=== PATIENT | female | born 1990 | race Caucasian/White ===

== ENCOUNTER → 2017-01-01 | Outpatient (CLI) | payer OTHER ==
--- NOTE | 2017-01-01 13:13 | KCIC ---
PROCEDURE Obstetric ultrasound, 1st trimester. HISTORY Supervision of normal . TECHNIQUE Real-time ultrasound imaging of the pelvis using transabdominal window is performed. COMPARISON None. FINDINGS Uterus measures 9.5 x 7.1 x 8.1 cm. No cul-de-sac free fluid is identified. The maternal ovaries are not identified transabdominally. There is intrauterine gestational sac. No perigestational hemorrhage is seen. Yolk sac is not identified. [place]-rump length 4.2 cm, 11 weeks and 0 days. Estimated heart rate 175 beats per minute. EDC ultrasound is July 23, 2017. IMPRESSION Single live intrauterine , estimated sonographic gestational age 11 weeks and 0 days. Electronically signed by: Lalito Campos MD (January 01, 2017 13:11:58)
== END | disposition home or self-care (01) ==
LOC: KCIC US 10:27
PROVIDERS: ATTEND Family Medicine
DX: Z34.91 Encounter for supervision of normal pregnancy, unspecified, first trimester (principal)
CPT/HCPCS: 76801; 76817

== ENCOUNTER 2017-02-07 13:29 | Emergency (ER) | payer OTHER ==
[~2017-02-07] VITALS: Ht 170.2 cm; Wt 122.5 kg
[2017-02-07] MEDS ORDERED: ONDANSETRON PF 4 MG/2 ML VIAL. IV ONE (14:15)
[2017-02-07] MEDS ORDERED: IV NORMAL SALINE 1000ML BAG 1,000 ML IV ONE (14:15)
[2017-02-07 14:21] LABS: BILIRUBIN,URINE SMALL (NEG); GLUCOSE,URINE NEGATIVE (NEG); NITRITE,URINE NEGATIVE (NEG); PROTEIN,URINE >=300 mg/dL (NEG-TRACE)
--- NOTE | 2017-02-07 14:26 | PHYS DOC ---
Past Medical History Past Medical History: No Pertinent History Past Surgical History: Tonsillectomy Additional Past Surgical Histo: WISDOM TEETH Alcohol Use: Occasionally Additional Information: PT REPORTS PREVIOUSLY DRINKING OCCASIONALLY PRIOR TO . Drug Use: None Adult General Chief Complaint Chief Complaint: DIZZY/LIGHT HEADED HPI HPI Patient is a 26 year old female brought to the ED by a family member with a complaint of nausea, vomiting, and lightheadedness for one week. The patient is 16 weeks segment. . Her BOAT ENGINE MECHANIC is Dr. Priscilla Craft. She has been having some nausea and vomiting throughout her and for the last week it has been worse. She did vomit some bright red blood once or twice. She has Zofran and Phenergan at home, neither are helping. She is starting to feel somewhat lightheaded and dizzy. No chronic medical problems. Review of Systems Review of Systems Constitutional: Denies fever or chills [] HENT: Denies nasal congestion or sore throat [] Respiratory: She has had a dry cough. Cardiovascular: No chest pain GI: Denies abdominal pain, nausea, vomiting, bloody stools or diarrhea [] : As in history of present illness, denies vaginal bleeding Musculoskeletal: Denies back pain or joint pain [] Integument: Denies rash or skin lesions [] Neurologic: Denies headache, focal weakness or sensory changes [] Current Medications Current Medications Current Medications Medications (Trade) Dose Ordered Sig/Gill Start Time Stop Time Status Last Admin Dose Admin Ondansetron HCl (Zofran) 4 mg 1X ONCE 02/07/17 14:15 02/07/17 14:16 DC 02/07/17 14:39 4 MG Sodium Chloride 1,000 ml @ 1,000 mls/hr 1X ONCE 02/07/17 14:15 02/07/17 15:14 DC 02/07/17 14:38 1,000 MLS/HR Allergies Allergies Allergies Coded Allergies Type Severity Reaction Last Updated Verified No Known Drug Allergies 02/07/17 No Physical Exam Physical Exam Constitutional: Well developed, well nourished, no acute distress, non-toxic appearance. Her, mentating normally. Sitting HENT: Normocephalic, atraumatic, bilateral external ears normal, nose normal. [] Eyes: conjunctiva normal, no discharge. [] Neck: Normal range of motion, no stridor. [] Cardiovascular:Heart rate regular rhythm, no murmur [] Lungs & Thorax: Bilateral breath sounds clear to auscultation [] Abdomen: Bowel sounds normal, soft, no tenderness, no masses, no pulsatile masses. [] Skin: Warm, dry, no erythema, no rash. [] Extremities: No tenderness, no cyanosis, no clubbing, ROM intact, no edema. [] Neurologic: Alert and oriented X 3, normal motor function, normal sensory function, no focal deficits noted. [] Current Patient Data Vital Signs Vital Signs Date Time Temp Pulse Resp B/P (MAP) Pulse Ox O2 Delivery O2 Flow Rate FiO2 02/07/17 15:24 83 16 130/60 (83) 98 Room Air 02/07/17 13:35 98.1 98.1 Lab Values Laboratory Tests Test 02/07/17 13:35 02/07/17 14:35 Urine Color Russell Urine Clarity Turbid Urine pH 6.0 Urine Specific [place] 1.025 Urine Protein >=300 mg/dL (NEG-TRACE) Urine Glucose (UA) Negative mg/dL (NEG) Urine Ketones (Stick) 15 mg/dL (NEG) Urine Blood Negative (NEG) Urine Nitrite Negative (NEG) Urine Bilirubin Small (NEG) Urine Urobilinogen Dipstick 1.0 mg/dL (0.2 mg/dL) Urine Leukocyte Esterase Moderate (NEG) Urine RBC Occ /HPF (0-2) Urine WBC 5-10 /HPF (0-4) Urine Squamous Epithelial Cells Mod /LPF Urine Bacteria Many /HPF (0-FEW) Urine Mucus Mod /LPF POC Hemoglobin 12.6 g/dL (12-15) POC Hematocrit 37 % (36-40) POC Sodium 139 mmol/L (135-145) POC Potassium 3.9 mmol/L (3.5-5.0) POC Chloride 104 mmol/L (98-110) POC Total CO2 21 mmol/L (23-32) L Anion Gap 19 mmol/L (6-14) H POC Blood Urea Nitrogen 3 mg/dL (8-26) L POC Creatinine 0.5 mg/dL (0.5-1.4) Glucose Level 89 mg/dL (70-99) POC Ionized Calcium ([place]) 1.18 mmol/L (1.13-1.32) Laboratory Tests 02/07/17 14:35 EKG EKG [] Radiology/Procedures Radiology/Procedures [] Course & Med Decision Making Course & Med Decision Making Pertinent Labs and Imaging studies reviewed. (See chart for details) 26-year-old female with her first who has had some nausea, vomiting, and lightheadedness. She is 16 weeks . I discussed with the patient that we can offer her some IV fluids today and she is agreeable to that. We will check some labs and a urinalysis. Labs unremarkable, urinalysis contaminated. She did have protein in her urine and I ask her to follow up with her OB doctor for further evaluation if necessary. She was given a liter of normal saline. She had no vomiting in the ED. She is stable for discharge and has an appointment this coming Friday with her OB doctor. [] Dragon Disclaimer Dragon Disclaimer This electronic medical record was generated, in whole or in part, using a voice recognition dictation system. Departure Departure Impression: Primary Impression: Lightheadedness Additional Impression: Second trimester Disposition: HOME, SELF-CARE Condition: IMPROVED Referrals: MYLENE CRAFT MD (PCP) Patient Instructions: Diet - Hyperemesis Gravidarum, Hyperemesis Gravidarum, - First Trimester, [id number] Additional Instructions: As we discussed, small amounts of fluids all day long. You may use nausea medicine as prescribed by your OB doctor. Today in the ER, urine test showed protein in your urine. Please discuss this with Dr. Craft when you see her next week. Problem Qualifiers SANDRA SHARP MD Feb 07, 2017 14:26
[2017-02-07 14:44] LABS: BACTERIA,URINE MANY /HPF (0-FEW); RBC,URINE OCC /HPF (0-2); SQUAMOUS EPITHELIAL CELL,UR MOD /LPF
[2017-02-07 14:45] LABS: POTASSIUM ISTAT 3.9 mmol/L (3.5-5.0)
[2017-02-07 15:24] VITALS: BP 130/60
== END 2017-02-07 15:24 | disposition home or self-care (01) ==
LOC: ER 13:29
DX: O26.892 Other specified pregnancy related conditions, second trimester (principal); R42 Dizziness and giddiness; O21.0 Mild hyperemesis gravidarum; Z3A.16 16 weeks gestation of pregnancy
CPT/HCPCS: 80047; 81001; 81025; 87086; 96361; 96374; 99284; J2405; J7030

== ENCOUNTER → 2017-02-28 | Outpatient (CLI) | payer OTHER ==
[2017-02-07 15:24] VITALS: BP 130/60
--- NOTE | 2017-02-28 12:40 | KCIC ---
Examination: Obstetric ultrasound greater than 14 weeks HISTORY: History of supervision of normal COMPARISON: 01/01/2017 FINDINGS: Single living intrauterine identified with heart rate of 143 bpm. movement is seen. Cardiac activity seen. 4 chamber heart seen. 3 vessel cord, cord insertion, fluid in the bladder, stomach, kidneys, spine: seen brain: Seen position is transverse Amniotic fluid is normal. Placenta grade is grade 0. Placenta location anterior wall LMP 10/16/2016 Clinical age 19 weeks and 2 days with estimated date of delivery 07/23/2017. Ultrasound age is 19 weeks and 6 days with date of delivery by ultrasound 07/19/2017. Cephalic index 80.8 Head circumference to abdominal circumference ratio 1.2 Femur length to biparietal diameter 71.3. Femur length to head circumference is 19.5. Femur length to abdominal circumference 23.4. Biparietal diameter 4.6 cm corresponding to 20 weeks and 0 days +/- 12 days. Head circumference 16.98 cm corresponding to 19 weeks and 4 days +/- 10 days. Abdominal circumference 14.13 cm corresponding to 19 weeks and 3 days +/- 14 days. Femur length 3.31 cm corresponding 20 weeks and 2 days +/- 13 days. Estimated weight 318 g +/- 47 g. Gestational age is 19 weeks and 6 days. IMPRESSION: 1. Single living intrauterine with heart rate of 143 bpm. Per this ultrasound the ultrasound age is 19 weeks and 6 days with estimated date of delivery by ultrasound 07/19/2017. Electronically signed by: Erick Heller MD (02/28/2017 12:37 PM) [id number]
== END | disposition home or self-care (01) ==
LOC: KCIC US 10:34
PROVIDERS: ATTEND Family Medicine
DX: Z34.92 Encounter for supervision of normal pregnancy, unspecified, second trimester (principal); Z3A.19 19 weeks gestation of pregnancy
CPT/HCPCS: 76805

== ENCOUNTER 2017-04-03 12:06 | Observation (INO) | payer OTHER | END 2017-04-03 13:20 | disposition home or self-care (01) | LOC: 3 SO LND 12:06 | PROVIDERS: ADMIT Family Medicine; ATTEND Family Medicine | DX: O36.8120 Decreased fetal movements, second trimester, not applicable or unspecified (principal); Z3A.24 24 weeks gestation of pregnancy | CPT/HCPCS: G0378; G0379 ==

== ENCOUNTER 2017-05-03 06:49 | Emergency (ER) | payer OTHER ==
[~2017-05-03] VITALS: Ht 170.2 cm; Wt 131.1 kg
[2017-05-03 07:09] VITALS: BP 149/86
[2017-05-03] MEDS ORDERED: HYDR-971 PO (07:26)
[2017-05-03] MEDS ORDERED: AMOX500C PO (07:26)
--- NOTE | 2017-05-03 07:27 | PHYS DOC ---
Past Medical History Past Medical History: No Pertinent History Past Surgical History: Tonsillectomy Additional Past Surgical Histo: WISDOM TEETH Alcohol Use: None Drug Use: None Adult General Chief Complaint Chief Complaint: DENTAL PROBLEM HPI HPI Patient is a 26 year old female who presents with increasing dental pain to the right back upper and lower jaw. She states that she has had a broken right upper molar for a long time, but broke the bottom molar approximately 6 months ago. She states that they have been painless up until the past few days when pain started gradually increasing. She has been taking Tylenol with no relief. She just recently obtained dental insurance, but was unable to sleep last night and did not think that she would be able to get into a dentist over the weekend. Review of Systems Review of Systems Constitutional: Denies fever or chills [] Eyes: Denies change in visual acuity, redness, or eye pain [] HENT: See history of present illness Respiratory: Denies cough or shortness of breath [] Cardiovascular: No additional information not addressed in HPI [] Musculoskeletal: Denies back pain or joint pain [] Integument: Denies rash or skin lesions [] Neurologic: Denies headache, focal weakness or sensory changes [] Endocrine: Denies polyuria or polydipsia [] Allergies Allergies Allergies Coded Allergies Type Severity Reaction Last Updated Verified No Known Drug Allergies 02/07/17 No Physical Exam Physical Exam Constitutional: Well developed, well nourished, no acute distress, non-toxic appearance. [] HENT: Normocephalic, atraumatic, bilateral external ears normal, oropharynx moist, no oral exudates, nose normal, tooth #1 is fractured with no erythema, tooth #32 is fractured with erythema around the gum and swelling noted. [] Eyes: PERRLA, EOMI, conjunctiva normal, no discharge. [] Neck: Normal range of motion, no tenderness, supple, no stridor. [] Cardiovascular:Heart rate regular rhythm, no murmur [] Lungs & Thorax: Bilateral breath sounds clear to auscultation [] Skin: Warm, dry, no erythema, no rash. [] Neurologic: Alert and oriented X 3, normal motor function, normal sensory function, no focal deficits noted. [] Psychologic: Affect normal, judgement normal, mood normal. [] Current Patient Data Vital Signs Vital Signs Date Time Temp Pulse Resp B/P (MAP) Pulse Ox O2 Delivery O2 Flow Rate FiO2 05/03/17 07:09 98.4 98 16 98 Room Air 98.4 EKG EKG [] Radiology/Procedures Radiology/Procedures [] Course & Med Decision Making Course & Med Decision Making Pertinent Labs and Imaging studies reviewed. (See chart for details) []1. Dental infection 2. Fractured teeth Dragon Disclaimer Dragon Disclaimer This electronic medical record was generated, in whole or in part, using a voice recognition dictation system. Departure Departure Impression: Primary Impression: Fractured tooth Additional Impression: Dental infection Disposition: HOME, SELF-CARE Condition: STABLE Referrals: MYLENE CRAFT MD (PCP) Additional Instructions: Call a dental clinic today for an appointment. The patient has been placed on amoxicillin and a small amount of Kathryn for pain. She is to not drive or operate heavy machinery while she is taking this medication. She is to keep her regularly scheduled obstetric appointments and follow-up with her PCP as needed. Scripts Hydrocodone/Apap 5-325 (NORCO 5-325 TABLET) 1 Each Tablet 1 TAB PO PRN Q6HRS Y for PAIN, #5 TAB 0 Refills Prov: KHADRA BETANCOURT APRN 05/03/17 Amoxicillin (AMOXICILLIN) 500 Mg Capsule 2 CAP PO BID, #40 CAP Prov: KHADRA BETANCOURT APRN 05/03/17 Problem Qualifiers KHADRA BETANCOURT APRN May 03, 2017 07:27
== END 2017-05-03 07:40 | disposition home or self-care (01) ==
LOC: ER 06:49
DX: S02.5XXA Fracture of tooth (traumatic), initial encounter for closed fracture (principal); K04.7 Periapical abscess without sinus; X58.XXXA Exposure to other specified factors, initial encounter; Y93.89 Activity, other specified; Y99.8 Other external cause status; Y92.89 Other specified places as the place of occurrence of the external cause
CPT/HCPCS: 99283

== ENCOUNTER 2017-07-04 09:42 | Observation (INO) | payer OTHER ==
[~2017-07-04 09:42] MED LIST: AMOX500C PO; HYDR-971 PO
== END 2017-07-04 10:40 | disposition home or self-care (01) ==
LOC: 3 SO LND 09:42
PROVIDERS: ADMIT Family Medicine; ATTEND Family Medicine
DX: O24.419 Gestational diabetes mellitus in pregnancy, unspecified control (principal); Z3A.37 37 weeks gestation of pregnancy
CPT/HCPCS: G0378; G0379

== ENCOUNTER 2017-07-11 14:13 | Observation (INO) | payer OTHER ==
[~2017-07-11] VITALS: Ht 170.2 cm; Wt 134.7 kg
[2017-07-11] MEDS ORDERED: IV RINGERS,LACTATED 1000ML 1,000 ML IV SCH (14:23)
== END 2017-07-11 14:56 | disposition home or self-care (01) ==
LOC: 3 SO LND 14:13
PROVIDERS: ADMIT Family Medicine; ATTEND Family Medicine
DX: O24.419 Gestational diabetes mellitus in pregnancy, unspecified control (principal); Z3A.38 38 weeks gestation of pregnancy
CPT/HCPCS: G0378; G0379; 59025

== ENCOUNTER 2017-07-13 19:28 | Inpatient (IN) | payer OTHER ==
[~2017-07-13] VITALS: Ht 170.2 cm; Wt 133.4 kg
[2017-07-13] MEDS ORDERED: BUTORPHANOL 2 MG/ML VIAL. IV PRN ×2 (19:30)
[2017-07-13] MEDS ORDERED: TERBUTALINE 1 MG/ML VIAL. SQ PRN (19:30)
[2017-07-13] MEDS ORDERED: fentaNYL PF VIAL 100 MCG/2 ML VIAL IV PRN (19:30)
[2017-07-13] MEDS ORDERED: 0.9 % SODIUM CHLORIDE 10 ML DISP.SYRIN. IV PRN (19:30)
[2017-07-13] MEDS ORDERED: IBUPROFEN 600 MG TABLET. PO PRN (19:30)
[2017-07-13] MEDS ORDERED: OXYTOCIN 30 UNIT/500 ML PREMIX 500 ML IV PRN (19:30)
[2017-07-13] MEDS ORDERED: LIDOCAINE 1% PF 30 ML VIAL. INJ PRN (19:30)
[2017-07-13] MEDS ORDERED: AMPICILLIN SODIUM 1 GM in IV NORMAL SALINE 50ML 50 ML IV SCH (19:45)
[2017-07-13] MEDS ORDERED: AMPICILLIN SODIUM 2 GM in IV NORMAL SALINE 100ML 100 ML IV ONE (20:00)
[2017-07-13] MEDS ORDERED: DINOPROSTONE 10 MG SUPP.VAG VG ONE (20:00)
[2017-07-13 20:10] VITALS: BP 136/75
[2017-07-13] MEDS: IV RINGERS,LACTATED 1000ML 1,000 ML IV SCH (20:22)
[2017-07-13 20:23] LABS: BILIRUBIN,URINE NEGATIVE (NEG); GLUCOSE,URINE NEGATIVE (NEG); NITRITE,URINE NEGATIVE (NEG); PH,URINE 6.5; PROTEIN,URINE NEGATIVE (NEG-TRACE)
[2017-07-13 20:33] LABS: BACTERIA,URINE MODERATE /HPF (0-FEW); RBC,URINE 0 /HPF (0-2); SQUAMOUS EPITHELIAL CELL,UR MANY /LPF; WBC,URINE 20-40 /HPF (0-4); YEAST,URINE PRESENT /HPF
[2017-07-13 20:47] LABS: HEMATOCRIT 36.9 % (36.0-47.0); RED BLOOD COUNT 4.85 x10^6/uL (3.50-5.40); RED CELL DISTRIBUTION WIDTH 16.8 % (11.5-14.5); WHITE BLOOD COUNT 14.6 x10^3/uL (4.0-11.0)
[2017-07-14] MEDS: AMPICILLIN SODIUM IV Push 1 GM VIAL. IVP SCH ×6 (01:11→20:27)
[2017-07-14] MEDS: ONDANSETRON PF 4 MG/2 ML VIAL. IV PRN ×3 (03:31→17:32)
[2017-07-14] MEDS: IV RINGERS,LACTATED 1000ML 1,000 ML IV SCH ×3 (04:41→17:40)
[2017-07-14] MEDS ORDERED: OXYTOCIN 30 UNIT/500 ML PREMIX 500 ML IV PRN ×2 (08:00→22:15)
--- NOTE | 2017-07-14 09:00 | PDOC1 ---
OB - History Hx of Present Care: Good Care Ultrasounds: Normal mid trimester US Obstetrical Complications: Gestational Diabetes Medical Complications: Other (Leukocytosis) Past Family/Social History * Past Medical, Surgical, Family and Obstetric Histories reviewed from chart. Blood Type: B- Rubella: Immune RPR/VDRL: Negative GBS Status: Positive HBsAG: Negative OB - Chief Complaint & HPI Date of Admission: Date of Admission: Jul 13, 2017 at 19:28 Chief Complaint/History : 1 Para: 0 EDC: Jul 19, 2017 Reason for admission: induction of labor Indication for induction: medical complication (Gestational diabetes) Admission Nurse Assessment Rev: No Problems: OB - Admission Exam Physical Exam Vitals: VS - Last 72 Hours, by Label Date Time Temp Pulse Resp B/P (MAP) Pulse Ox O2 Delivery O2 Flow Rate FiO2 07/13/17 20:10 98.0 110 20 136/75 (95) Room Air 98.0 HEENT: Normal, Nasal Mucosa Normal, Oropharynx Normal, Moist Membranes, Fontanelles Normal Heart: Regular Rate Lungs: Clear, Equal Abdomen: Gravid Extremities: Normal Pulses, No tenderness or swelling Reflexes: Normal Cervical Dilatation: 1cm Effacement: 25% Station: -2 Membranes: Intact Heart Rate: Normal Accelerations: Accelerations Present Decelerations: Variable decelerations Short Term Variability: Present Media Law Faculty Member Variability: Moderate Contractions on Admission: None A/P Pt is a 27yo at 39.2wga admitted for IOL 2/2 GDM 1)IOL 2)GDM- started on Metformin within the last couple of weeks 3)GBS+ 4)B- Problems: MYLENE CRAFT MD Jul 14, 2017 09:00
[2017-07-14] MEDS ORDERED: ROPIVacaine 0.2% IN 0.9%NACL PF 40 MG/20 ML DISP.SYRIN. ONE ×2 (17:37→18:00)
[2017-07-14] MEDS ORDERED: L&D EPIDURAL CASSETTE 100 ML EP ONE (17:37)
[2017-07-14] MEDS ORDERED: ePHEDrine PF IN SALINE 50 MG/5 ML DISP.SYRIN IV ONE ×2 (17:57→18:00)
[2017-07-14] MEDS: L&D EPIDURAL CASSETTE 100 ML EP PRN (18:10)
[2017-07-14] MEDS ORDERED: NALOXONE 0.4 MG/ML VIAL. IV PRN (18:15)
[2017-07-14] MEDS ORDERED: fentaNYL PF VIAL 100 MCG/2 ML VIAL EPI ONE (18:15)
[2017-07-14] MEDS ORDERED: ePHEDrine PF IN SALINE 50 MG/5 ML DISP.SYRIN IV PRN (18:15)
[2017-07-14] MEDS ORDERED: ONDANSETRON PF 4 MG/2 ML VIAL. IV PRN (18:15)
[2017-07-14] MEDS ORDERED: ROPIVacaine 0.2% PF 10 ML VIAL. EPI ONE (18:15)
--- NOTE | 2017-07-14 22:12 | PDOC ---
VAGINAL DELIVERY DATE DATE: 07/14/17 TIME 0940 : 1 Para: 1 EDC: Jul 19, 2017 EGA: 39.2 VAGINAL DELIVERY: VTX VACCUM ASSISTED: No PLACENTA: Spontaneous 8/9 SEX: Male WEIGHT Weight 6 pounds 9oz or 2980g Nuchal Cord: No Amniotic Fluid: Clear PAIN: Epidural EPISIOTOMY: No EXTENSION: Yes (3rd degree perianal) REPAIRED WITH 3'0" vicryl EBL 400cc COMPLICATIONS None CONDITION Stable CUTTING TORCH OPERATOR Dr. Craft Signs of Intrauterine Infectio: None Shoulder Dystocia: No DIAGNOSIS Pt is a 27yo [id number] s/p induced vaginal delivery at 39.2wga 2/2 GDM 1)GBS+ received abx during labor 2)GDM- blood sugars controlled with Metformin 3)Rh negative 4) Problems: MYLENE CRAFT MD Jul 14, 2017 22:12
[2017-07-14] MEDS ORDERED: diphenhydrAMINE HCL 25 MG CAPSULE PO PRN (22:15)
[2017-07-14] MEDS ORDERED: MAGNESIUM HYDROXIDE 2,400 MG/30 ML ORAL.SUSP. PO PRN (22:15)
[2017-07-14] MEDS ORDERED: HYDROCORTISONE 1% TOPICAL OINTMENT 30GM TUBE. TP PRN (22:15)
[2017-07-14] MEDS ORDERED: ACETAMINOPHEN 325 MG TABLET. PO PRN (22:15)
[2017-07-14] MEDS ORDERED: MMR per PROTOCOL. MC PRN (22:15)
[2017-07-14] MEDS ORDERED: 0.9 % SODIUM CHLORIDE 10 ML DISP.SYRIN. IV PRN (22:15)
[2017-07-14] MEDS ORDERED: BENZOCAINE 20% TOPICAL AEROSOL SPRAY 57GM CAN. TP PRN (22:15)
[2017-07-14] MEDS ORDERED: SIMETHICONE 80 MG TAB.CHEW PO PRN (22:15)
[2017-07-14] MEDS ORDERED: PHENYLEPH/MINERAL OIL/PETROLAT RECTAL OINTMENT 28GM TUBE. RC PRN (22:15)
[2017-07-14] MEDS ORDERED: MAG HYDROX/ALUMINUM HYD/SIMETH 30 ML ORAL.SUSP PO PRN (22:15)
[2017-07-14] MEDS ORDERED: DOCUSATE SODIUM 100 MG CAPSULE. PO PRN (22:15)
[2017-07-14] MEDS ORDERED: ZOLPIDEM 5 MG TABLET. PO PRN (22:15)
[2017-07-15] MEDS: L&D EPIDURAL CASSETTE 100 ML EP PRN (01:07)
[2017-07-15] MEDS: IV RINGERS,LACTATED 1000ML 1,000 ML IV SCH (01:08)
[2017-07-15] MEDS: AMPICILLIN SODIUM IV Push 1 GM VIAL. IVP SCH ×2 (01:09)
[2017-07-15 02:43] VITALS: BP 102/51
[2017-07-15 04:30] VITALS: BP 106/67
[2017-07-15 04:48] LABS: BASO # 0.1 x10^3/uL (0.0-0.2); BASO % 0 % (0-3); EOS % 0 % (0-3); HEMATOCRIT 31.1 % (36.0-47.0); HEMOGLOBIN 10.3 g/dL (12.0-15.5); LYMPH # 2.8 x10^3/uL (1.0-4.8); LYMPH % 15 % (24-48); MEAN CORPUSCULAR HEMOGLOBIN 25 pg (25-35); MEAN CORPUSCULAR HGB CONC 33 g/dL (31-37); MEAN CORPUSCULAR VOLUME 77 fL (79-100); MONO % 9 % (0-9); NEUT % 76 % (31-73); PLATELET COUNT 317 x10^3/uL (140-400); RED BLOOD COUNT 4.07 x10^6/uL (3.50-5.40); RED CELL DISTRIBUTION WIDTH 16.9 % (11.5-14.5); WHITE BLOOD COUNT 18.9 x10^3/uL (4.0-11.0)
--- NOTE | 2017-07-15 08:11 | PDOC ---
OB Progress Note Date of Service 07/15/17 Time of Evaluation 0745 Date: 07/14/17 Time: 2139 Notes Pt says that she is doing well. Bleeding is a little heavier than a period; no blood clots. Not taking any pain medication; pain moderately controlled. going well. OB VITAL SIGNS: Temperature (97.7), Blood Pressure (106/67), Pulse (97) Lab Laboratory Tests Test 07/13/17 20:15 07/13/17 20:20 07/14/17 11:44 07/14/17 17:08 Urine Collection Type Unknown Urine Color Yellow Urine Clarity Clear Urine pH 6.5 Urine Specific [place] 1.020 Urine Protein Negative mg/dL (NEG-TRACE) Urine Glucose (UA) Negative mg/dL (NEG) Urine Ketones (Stick) Negative mg/dL (NEG) Urine Blood Negative (NEG) Urine Nitrite Negative (NEG) Urine Bilirubin Negative (NEG) Urine Urobilinogen Dipstick 1.0 mg/dL (0.2 mg/dL) Urine Leukocyte Esterase Large (NEG) Urine RBC 0 /HPF (0-2) Urine WBC 20-40 /HPF (0-4) Urine Squamous Epithelial Cells Many /LPF Urine Bacteria Moderate /HPF (0-FEW) Urine Mucus Mod /LPF Urine Yeast Present /HPF White Blood Count 14.6 x10^3/uL (4.0-11.0) Red Blood Count 4.85 x10^6/uL (3.50-5.40) Hemoglobin 12.0 g/dL (12.0-15.5) Hematocrit 36.9 % (36.0-47.0) Mean Corpuscular Volume 76 fL (79-100) Mean Corpuscular Hemoglobin 25 pg (25-35) Mean Corpuscular Hemoglobin Concent 33 g/dL (31-37) Red Cell Distribution Width 16.8 % (11.5-14.5) Platelet Count 383 x10^3/uL (140-400) RPR Titer Additional Testing Non reactive (Non Reactive) Glucose (Fingerstick) 85 mg/dL (70-99) 83 mg/dL (70-99) Test 07/15/17 04:35 White Blood Count 18.9 x10^3/uL (4.0-11.0) Red Blood Count 4.07 x10^6/uL (3.50-5.40) Hemoglobin 10.3 g/dL (12.0-15.5) Hematocrit 31.1 % (36.0-47.0) Mean Corpuscular Volume 77 fL (79-100) Mean Corpuscular Hemoglobin 25 pg (25-35) Mean Corpuscular Hemoglobin Concent 33 g/dL (31-37) Red Cell Distribution Width 16.9 % (11.5-14.5) Platelet Count 317 x10^3/uL (140-400) Neutrophils (%) (Auto) 76 % (31-73) Lymphocytes (%) (Auto) 15 % (24-48) Monocytes (%) (Auto) 9 % (0-9) Eosinophils (%) (Auto) 0 % (0-3) Basophils (%) (Auto) 0 % (0-3) Neutrophils # (Auto) 14.3 x10^3uL (1.8-7.7) Lymphocytes # (Auto) 2.8 x10^3/uL (1.0-4.8) Monocytes # (Auto) 1.7 x10^3/uL (0.0-1.1) Eosinophils # (Auto) 0.0 x10^3/uL (0.0-0.7) Basophils # (Auto) 0.1 x10^3/uL (0.0-0.2) Laboratory Tests Test 07/14/17 11:44 07/14/17 17:08 07/15/17 04:35 Glucose (Fingerstick) 85 mg/dL (70-99) 83 mg/dL (70-99) White Blood Count 18.9 x10^3/uL (4.0-11.0) Red Blood Count 4.07 x10^6/uL (3.50-5.40) Hemoglobin 10.3 g/dL (12.0-15.5) Hematocrit 31.1 % (36.0-47.0) Mean Corpuscular Volume 77 fL (79-100) Mean Corpuscular Hemoglobin 25 pg (25-35) Mean Corpuscular Hemoglobin Concent 33 g/dL (31-37) Red Cell Distribution Width 16.9 % (11.5-14.5) Platelet Count 317 x10^3/uL (140-400) Neutrophils (%) (Auto) 76 % (31-73) Lymphocytes (%) (Auto) 15 % (24-48) Monocytes (%) (Auto) 9 % (0-9) Eosinophils (%) (Auto) 0 % (0-3) Basophils (%) (Auto) 0 % (0-3) Neutrophils # (Auto) 14.3 x10^3uL (1.8-7.7) Lymphocytes # (Auto) 2.8 x10^3/uL (1.0-4.8) Monocytes # (Auto) 1.7 x10^3/uL (0.0-1.1) Eosinophils # (Auto) 0.0 x10^3/uL (0.0-0.7) Basophils # (Auto) 0.1 x10^3/uL (0.0-0.2) Medications Current Medications Sodium Chloride (Normal Saline Flush) 3 ml QSHIFT PRN IV AFTER MEDS AND BLOOD DRAWS; Start 07/13/17 at 19:30; Stop 07/14/17 at 22:19; Status DC Ringer's Solution 1,000 ml @ 125 mls/hr Q8H IV Last administered on 17:40; Start 07/13/17 at 19:30 Butorphanol Tartrate (Stadol) 1 mg PRN Q1HR PRN IV mild to moderate labor pain ; Start 07/13/17 at 19:30; Stop 07/15/17 at 07:22; Status DC Butorphanol Tartrate (Stadol) 2 mg PRN Q1HR PRN IV Severe labor pain; Start at 19:30; Stop 07/15/17 at 07:22; Status DC Fentanyl Citrate (Fentanyl 2ml Vial) 100 mcg PRN Q30MIN PRN IV Severe pain; Start 07/13/17 at 19:30 Ondansetron HCl (Zofran) 4 mg PRN Q4HRS PRN IV NAUSEA/VOMITING Last administered on 07/14/17 17:32; Start 07/13/17 at 19:30; Stop 07/14/17 at 22 :19; Status DC Terbutaline Sulfate (Brethine) 0.25 mg 1X PRN PRN SQ SEE COMMENTS; Start 07/13 at 19:30; Stop 07/14/17 at 19:29; Status DC Lidocaine HCl 30 ml 1X PRN PRN INJ SEE COMMENTS; Start 07/13/17 at 19:30; Stop 07/15/17 at 07:22; Status DC Ampicillin Sodium 2 gm/Sodium Chloride 100 ml @ 200 mls/hr 1X ONCE IV Last administered on 07/13/17 20:23; Start 07/13/17 at 20:00; Stop 07/13/17 at 20 :29; Status DC Ampicillin Sodium 1 gm/Sodium Chloride 50 ml @ 100 mls/hr Q4H IV ; Start 07/13 at 19:45; Status UNV Oxytocin/Sodium Chloride 500 ml @ 0 mls/hr CONT PRN IV SEE I/O RECORD Last administered on 07/14/17 12:44; Start 07/14/17 at 08:00; Stop 07/15/17 at 07 :22; Status DC Oxytocin/Sodium Chloride 500 ml @ 0 mls/hr CONT PRN PRN IV Post delivery bleeding; Start 07/13/17 at 19:30; Stop 07/15/17 at 07:22; Status DC Ibuprofen (Motrin) 600 mg PRN Q6HRS PRN PO PAIN; Start 07/13/17 at 19:30; Stop 07/14/17 at 22:18; Status DC Dinoprostone (Cervidil) 10 mg 1X ONCE VG Last administered on 07/13/17 20:23 ; Start 07/13/17 at 20:00; Stop 07/13/17 at 20:01; Status DC Ampicillin Sodium (Omnipen) 1 gm Q4HRS IVP Last administered on 07/14/17 20: 27; Start 07/14/17 at 00:00; Stop 07/15/17 at 07:22; Status DC Ropivacaine/ Fentanyl/NS 100 ml @ As Directed STK-MED ONCE EP ; Start at 17:37; Stop 07/15/17 at 07:22; Status DC Ropivacaine/ Sodium Chloride 40 mg STK-MED ONCE .ROUTE ; Start 07/14/17 at 17: 37; Stop 07/15/17 at 07:22; Status DC Ephedrine Sulfate 50 mg STK-MED ONCE IV ; Start 07/14/17 at 17:57; Stop at 17:58; Status DC Ephedrine Sulfate 10 mg PRN Q2MIN PRN IV IF SBP<90; Start 07/14/17 at 18:15 Naloxone HCl (Narcan) 0.04 mg PRN Q1MIN PRN IV SEE COMMENTS; Start 07/14/17 at 18:15 Fentanyl Citrate (Fentanyl 2ml Vial) 100 mcg 1X ONCE EPI ; Start 07/14/17 at 18:15; Stop 07/14/17 at 18:16; Status DC Ropivacaine/ Fentanyl/NS 100 ml @ 14 mls/hr CONT PRN EP PAIN Last administered on 07/14/17t 18:10; Start 07/14/17 at 18:15; Stop 07/15/17 at 07 :22; Status DC Ondansetron HCl (Zofran) 4 mg PRN Q6HRS PRN IV NAUSEA/VOMITING; Start at 18:15 Ropivacaine (Naropin 0.2%) 20 ml 1X ONCE EPI ; Start 07/14/17 at 18:15; Stop 07/15/17 at 07:22; Status DC Sodium Chloride (Normal Saline Flush) 10 ml QSHIFT PRN IV AFTER MEDS AND BLOOD DRAWS; Start 07/14/17 at 22:15 Oxytocin/Sodium Chloride 500 ml @ 62.5 mls/hr CONT PRN IV SEE I/O RECORD; Start 07/14/17 at 22:15; Stop 07/15/17 at 06:14; Status DC Acetaminophen (Tylenol) 650 mg PRN Q6HRS PRN PO MILD PAIN / TEMP; Start at 22:15 Ibuprofen (Motrin) 800 mg Q8HRS PO ; Start 07/15/17 at 06:00 Docusate Sodium (Colace) 100 mg PRN BID PRN PO CONSTIPATION; Start 07/14/17 at 22:15 Magnesium Hydroxide (Milk Of Magnesia) 2,400 mg PRN DAILY PRN PO CONSTIPATION; Start 07/14/17 at 22:15 Al Hydroxide/Mg Hydroxide (Mylanta Plus Xs) 30 ml PRN Q4HRS PRN PO HEARTBURN / GAS; Start 07/14/17 at 22:15 Simethicone (Gas-X) 80 mg PRN AFTMEALHC PRN PO GAS / BLOATING; Start 07/14/17 at 22:15 Diphenhydramine HCl (Benadryl) 25 mg PRN Q6HRS PRN PO ITCHING; Start 07/14/17 at 22:15 Benzocaine (Americaine) 1 spray PRN QID PRN TP TOPICAL PAIN; Start 07/14/17 at 22:15 Phenyleph/Shark Oil/Min Oil/Petrol (Preparation H) 1 lyndsey PRN QID PRN RC RECTAL PAIN; Start 07/14/17 at 22:15 Hydrocortisone (Cortaid) 1 lyndsey PRN QID PRN TP PERINEAL PAIN; Start 07/14/17 at 22:15 Ferrous Sulfate (Feosol) 325 mg BIDWMEALS PO ; Start 07/15/17 at 08:00 Zolpidem Tartrate (Ambien) 5 mg PRN QHS PRN PO INSOMNIA, MAY REPEAT X1; Start 07/14/17 at 22:15 Info (Do NOT chart on this placeholder) 1 ea 1X PRN PRN MC SEE COMMENTS; Start 07/14/17 at 22:15 Info (Do NOT chart on this placeholder) 1 ea 1X PRN PRN MC SEE COMMENTS; Start 07/14/17 at 22:15 Active Scripts Active [place] 5-325 Tablet (Acetaminophen/Hydrocodone Bitart) 1 Each Tablet 1 Tab PO PRN Q6HRS PRN Amoxicillin 500 Mg Capsule 2 Cap PO BID Exam GEN: NAD, AOx3 HEENT: MMM, EOMI, no scleral icterus/injection Cardiac: RRR, no M/R/G Lungs: CTAB Abd: soft, non distended Ext: no erythema/edema LE bilaterally Assessment Pt is a 27yo [id number] s/p induced vaginal delivery at 39.2wga 2/2 GDM 1)GBS+ received abx during labor 2)GDM- blood sugars controlled with Metformin prior to delivery 3)Rh negative 4) 5)Abnormal U/A- dirty specimen, will get clean catch or straight cath 6)Leukocytosis- chronic. Repeat CBC in 1 month MYLENE CRAFT MD Jul 15, 2017 08:11
[2017-07-15] MEDS: IBUPROFEN 800 MG TABLET. PO SCH ×3 (08:25→22:00)
[2017-07-15] MEDS: FERROUS SULFATE 325 MG TABLET. PO SCH ×2 (08:25→16:27)
[2017-07-15 10:05] VITALS: BP 90/55
[2017-07-15 12:30] VITALS: BP 96/63
[2017-07-15 16:45] VITALS: BP 103/64
[2017-07-15 23:01] VITALS: BP 87/39
[2017-07-16 06:00] VITALS: BP 96/64
[2017-07-16] MEDS: IBUPROFEN 800 MG TABLET. PO SCH ×3 (06:00→07:57)
[2017-07-16 10:30] VITALS: BP 106/54
[2017-07-16] MEDS ORDERED: IBUP800T19 PO (12:19)
--- NOTE | 2017-07-16 12:37 | PDOC3 ---
OB DISCHARGE SUMMARY DATE OF ADMISSION: 07/14/17 DATE OF DISCHARGE: 07/16/17 REASON FOR ADMISSION: Induction of labor PROCEDURES: Mgmt of OB Complications INTRAPARTUM PROCEDURES: Spontanous Vag Deliv, Vaginal Laceration PROCEDURES: Antibiotics DISCHARGE DIAGNOSIS: Term Delivered DISCHARGE INFORMATION: Activity (As tolerated), Diet (Regular), Medications ( Ibuprofen, Docusate), Instructions (Follow up with Dr. Craft in 4-6 weeks), Discharge to (home) HOSPITAL COURSE Pt is a 27yo [id number] s/p induced vaginal delivery at 39.2wga 2/2 GDM 1)GBS+ received abx during labor 2)GDM- blood sugars controlled with Metformin prior to delivery 3)Rh negative 4) 5)Abnormal U/A- dirty specimen, pt asymptomatic 6)Leukocytosis- chronic. Repeat CBC in 1 month MYLENE CRAFT MD Jul 16, 2017 12:36
[2017-07-16 13:30] VITALS: BP 117/70
[2017-07-16 14:01] VITALS: BP 117/70
== END 2017-07-16 14:45 | disposition home or self-care (01) | DRG 775 ==
LOC: 3 SO LND 19:28 → 3 NORTH 07-15 00:57
PROVIDERS: ADMIT Family Medicine; ATTEND Family Medicine
PROC: 10E0XZZ Delivery of Products of Conception, External Approach (ICD-10-PCS; principal; 2017-07-15)
PROC: 0DQR0ZZ Repair Anal Sphincter, Open Approach (ICD-10-PCS; 2017-07-15)
PROC: 3E0R3BZ Introduction of Anesthetic Agent into Spinal Canal, Percutaneous Approach (ICD-10-PCS; 2017-07-15)
PROC: 00HU33Z Insertion of Infusion Device into Spinal Canal, Percutaneous Approach (ICD-10-PCS; 2017-07-15)
DX: O24.425 Gestational diabetes mellitus in childbirth, controlled by oral hypoglycemic drugs (principal); O70.20 Third degree perineal laceration during delivery, unspecified; D72.829 Elevated white blood cell count, unspecified; O99.824 Streptococcus B carrier state complicating childbirth; O76 Abnormality in fetal heart rate and rhythm complicating labor and delivery; Z37.0 Single live birth; Z3A.39 39 weeks gestation of pregnancy
CPT/HCPCS: 36415; 81001; 82962; 85025; 85027; 86593; 86850; 86900; 86901; 87086; J0290; J2405; J2590; J2791; J2795; J7120

== ENCOUNTER 2017-09-05 15:53 | Emergency (ER) | payer OTHER ==
[2017-09-05 16:32] LABS: URINE HCG POC HCG NEGATIVE (Negative)
[2017-09-05] MEDS ORDERED: 0.9 % SODIUM CHLORIDE 10 ML DISP.SYRIN. IV (16:45)
[2017-09-05 16:46] LABS: ADD MAN DIFF? NO
[2017-09-05 16:47] LABS: BILIRUBIN,URINE NEGATIVE (NEG); CLARITY,URINE CLEAR; COLOR,URINE YELLOW; GLUCOSE,URINE NEGATIVE (NEG); NITRITE,URINE NEGATIVE (NEG); PROTEIN,URINE NEGATIVE (NEG-TRACE); UROBILINOGEN,URINE 0.2 mg/dL (0.2 mg/dL)
[2017-09-05 16:48] LABS: BASO # 0.1 x10^3/uL (0.0-0.2); BASO % 0 % (0-3); EOS # 0.1 x10^3/uL (0.0-0.7); EOS % 1 % (0-3); HEMATOCRIT 37.5 % (36.0-47.0); LYMPH # 1.9 x10^3/uL (1.0-4.8); LYMPH % 14 % (24-48); MEAN CORPUSCULAR HEMOGLOBIN 25 pg (25-35); MEAN CORPUSCULAR HGB CONC 32 g/dL (31-37); MEAN CORPUSCULAR VOLUME 77 fL (79-100); MONO # 0.5 x10^3/uL (0.0-1.1); MONO % 4 % (0-9); NEUT # 10.9 x10^3uL (1.8-7.7); NEUT % 81 % (31-73); PLATELET COUNT 376 x10^3/uL (140-400); RED BLOOD COUNT 4.88 x10^6/uL (3.50-5.40); RED CELL DISTRIBUTION WIDTH 16.1 % (11.5-14.5); WHITE BLOOD COUNT 13.5 x10^3/uL (4.0-11.0)
[2017-09-05] MEDS: IV NORMAL SALINE 1000ML BAG 1,000 ML IV (16:52)
[2017-09-05] MEDS: FAMOTIDINE 20 MG/2 ML VIAL IVP (16:54)
[2017-09-05] MEDS: ONDANSETRON PF 4 MG/2 ML VIAL. IV (16:58)
[2017-09-05] MEDS: MORPHINE SULFATE 4 MG/ML DISP.SYRIN. IV/SQ (16:59)
[2017-09-05 17:00] LABS: BACTERIA,URINE FEW /HPF (0-FEW); GRANULAR CASTS,URINE OCCASIONAL /HPF; HYALINE CASTS, URINE OCCASIONAL /HPF; RBC,URINE 0 /HPF (0-2); SQUAMOUS EPITHELIAL CELL,UR OCC /LPF
[2017-09-05] MEDS ORDERED: CONTRAST GIVEN MC (17:00)
[2017-09-05 17:05] LABS: ANION GAP 10 (6-14); BLOOD UREA NITROGEN 13 mg/dL (7-20); CALCIUM 8.8 mg/dL (8.5-10.1); CARBON DIOXIDE 27 mmol/L (21-32); CHLORIDE 106 mmol/L (98-107); CREATININE 0.8 mg/dL (0.6-1.0); GFR 87.4; GLUCOSE 112 mg/dL (70-99); POTASSIUM 4.3 mmol/L (3.5-5.1); SODIUM 143 mmol/L (136-145)
[2017-09-05 17:07] LABS: ALBUMIN 3.2 g/dL (3.4-5.0); ALK PHOS 125 U/L (46-116); ALT (SGPT) 18 U/L (14-59); AST (SGOT) 44 U/L (15-37); DIRECT BILIRUBIN 0.2 mg/dL (0.0-0.2); LIPASE 262 U/L (73-393); TOTAL BILIRUBIN 0.2 mg/dL (0.2-1.0); TOTAL PROTEIN 7.8 g/dL (6.4-8.2)
[2017-09-05] MEDS: IOHEXOL 300 MG/ML 100ML VIAL. IV (17:24)
== END 2017-09-05 18:50 | disposition home or self-care (01) ==
LOC: ER 15:53
DX: R10.13 Epigastric pain (principal); R11.2 Nausea with vomiting, unspecified
CPT/HCPCS: 36415; 74177; 80048; 80076; 81001; 81025; 83690; 85025; 87086; 96361; 96374; 96375; 99285-25; J2270; J2405; J7030; Q9967; S0028

== ENCOUNTER 2017-10-13 22:12 | Emergency (ER) | payer OTHER ==
[2017-10-13 22:54] LABS: ADD MAN DIFF? NO
[2017-10-13 22:56] LABS: BASO # 0.1 x10^3/uL (0.0-0.2); BASO % 1 % (0-3); EOS # 0.2 x10^3/uL (0.0-0.7); EOS % 2 % (0-3); HEMATOCRIT 38.5 % (36.0-47.0); HEMOGLOBIN 12.7 g/dL (12.0-15.5); LYMPH # 2.5 x10^3/uL (1.0-4.8); LYMPH % 21 % (24-48); MEAN CORPUSCULAR HEMOGLOBIN 25 pg (25-35); MEAN CORPUSCULAR HGB CONC 33 g/dL (31-37); MEAN CORPUSCULAR VOLUME 74 fL (79-100); MONO # 0.7 x10^3/uL (0.0-1.1); MONO % 6 % (0-9); NEUT # 8.5 x10^3uL (1.8-7.7); NEUT % 71 % (31-73); PLATELET COUNT 412 x10^3/uL (140-400); RED BLOOD COUNT 5.17 x10^6/uL (3.50-5.40); RED CELL DISTRIBUTION WIDTH 15.8 % (11.5-14.5); WHITE BLOOD COUNT 11.8 x10^3/uL (4.0-11.0)
[2017-10-13 23:07] LABS: ANION GAP 8 (6-14); BLOOD UREA NITROGEN 12 mg/dL (7-20); BUN/CREATININE RATIO 13 (6-20); CALCIUM 8.7 mg/dL (8.5-10.1); CARBON DIOXIDE 28 mmol/L (21-32); CHLORIDE 103 mmol/L (98-107); CREATININE 0.9 mg/dL (0.6-1.0); GFR 76.3; GLUCOSE 103 mg/dL (70-99); POTASSIUM 4.2 mmol/L (3.5-5.1); SODIUM 139 mmol/L (136-145)
[2017-10-13 23:08] LABS: URINE HCG POC HCG NEGATIVE (Negative)
[2017-10-13] MEDS: IV NORMAL SALINE 1000ML BAG 1,000 ML IV (23:10)
[2017-10-13 23:13] LABS: ALBUMIN 3.5 g/dL (3.4-5.0); ALBUMIN/GLOBULIN RATIO 0.7 (1.0-1.7); ALK PHOS 93 U/L (46-116); ALT (SGPT) 22 U/L (14-59); AST (SGOT) 31 U/L (15-37); BILIRUBIN,URINE NEGATIVE (NEG); CLARITY,URINE CLEAR; COLOR,URINE YELLOW; GLUCOSE,URINE NEGATIVE (NEG); LIPASE 227 U/L (73-393); NITRITE,URINE NEGATIVE (NEG); PROTEIN,URINE NEGATIVE (NEG-TRACE); TOTAL BILIRUBIN 0.6 mg/dL (0.2-1.0); TOTAL PROTEIN 8.4 g/dL (6.4-8.2)
[2017-10-13] MEDS: ONDANSETRON PF 4 MG/2 ML VIAL. IV (23:15)
[2017-10-13 23:26] LABS: BACTERIA,URINE FEW /HPF (0-FEW); RBC,URINE 0 /HPF (0-2); SQUAMOUS EPITHELIAL CELL,UR MOD /LPF
[2017-10-13] MEDS: fentaNYL PF VIAL 100 MCG/2 ML VIAL IV (23:30)
[2017-10-14] MEDS: fentaNYL PF VIAL 100 MCG/2 ML VIAL IV (02:00)
== END 2017-10-14 02:07 | disposition home or self-care (01) ==
LOC: ER 10-14 02:07
DX: R10.13 Epigastric pain (principal); R11.10 Vomiting, unspecified; R19.7 Diarrhea, unspecified
CPT/HCPCS: 36415; 76705; 80053; 81001; 81025; 83690; 85025; 96361; 96374; 96375; 96376; 99285-25; J2405; J3010; J7030

== ENCOUNTER → 2017-10-24 | Day surgery (SDC) | payer OTHER ==
[~2017-10-24] MED LIST changes: -AMOX500C PO; +DESFLURANE 61 TO 120 MINUTES IH; +DEXAMETHASONE SOD PHOS 20 MG/5 ML VIAL.; +ESMOLOL 100 MG/10 ML VIAL. IV; +GLUCAGON,HUMAN RECOMBINANT 1 MG/ML VIAL.; +GLYCOPYRROLATE 1 MG/5 ML VIAL.; -HYDR-971 PO; +HYDROmorphone 2 MG/ML VIAL IV; +LIDOCAINE 1% PF 2 ML VIAL. ID; +LIDOCAINE 1% PF 5 ML VIAL.; +MORPHINE SULFATE 2 MG/ML DISP.SYRIN. IV; +NEOSTIGMINE 10 MG/10 ML VIAL.; +ONDANSETRON PF 4 MG/2 ML VIAL.; +ONDANSETRON PF 4 MG/2 ML VIAL. IV; +PROCHLORPERAZINE 10 MG/2 ML VIAL. IV; +PROPOFOL 20 ML IV; +ROCURONIUM 50 MG/5 ML VIAL.; +SCOPOLAMINE 1.5MG PATCH. TD; +ceFAZolin 2GM PREMIX 2 GM/50 ML BAG IV; +fentaNYL PF VIAL 100 MCG/2 ML VIAL; +fentaNYL PF VIAL 100 MCG/2 ML VIAL IV; +oxyCODONE/APAP 5/325 1 TAB TABLET
[2017-10-24 10:31] LABS: NEG OBC UR NEG; POS OBC UR POS; U PREG PATIENT NEGATIVE (NEG)
[2017-10-24] MEDS: IV RINGERS,LACTATED 1000ML 1,000 ML IV (10:36)
[2017-10-24] MEDS: SCOPOLAMINE 1.5MG PATCH. TD (10:44)
[2017-10-24] MEDS: BUPIVAC MPF-EPI 0.5%-1:200000 30 ML VIAL. INJ (11:57)
[2017-10-24] MEDS: IOHEXOL 300 MG/ML 100ML VIAL. (11:57)
[2017-10-24] MEDS: SURGICEL HEMOSTAT 4X8 EACH. (12:29)
[2017-10-24] MEDS: fentaNYL PF VIAL 100 MCG/2 ML VIAL IV ×4 (13:08→13:37)
[2017-10-24] MEDS: oxyCODONE/APAP 5/325 1 TAB TABLET PO (14:11)
== END | disposition home or self-care (01) ==
LOC: SURG 09:51
DX: K80.10 Calculus of gallbladder with chronic cholecystitis without obstruction (principal); Z86.32 Personal history of gestational diabetes; Z98.890 Other specified postprocedural states; K08.409 Partial loss of teeth, unspecified cause, unspecified class; Z79.899 Other long term (current) drug therapy
CPT/HCPCS: 47563; 74300; 81025; 88304; C1769; J0690; J1100; J1610; J2405; J2704; J2710; J3010; J3490; J7030; J7120; Q9967

== ENCOUNTER 2019-11-09 04:46 | Emergency (ER) | payer MEDICAID, OTHER ==
[~2019-11-09] VITALS: Ht 170.2 cm; Wt 126.5 kg
[~2019-11-09 04:46] MED LIST changes: +AMOX500C PO; -DESFLURANE 61 TO 120 MINUTES IH; -DEXAMETHASONE SOD PHOS 20 MG/5 ML VIAL.; +DICY10CA53 PO; -ESMOLOL 100 MG/10 ML VIAL. IV; +FAMO40TA57 PO; -GLUCAGON,HUMAN RECOMBINANT 1 MG/ML VIAL.; -GLYCOPYRROLATE 1 MG/5 ML VIAL.; +HYDR-2761 PO; +HYDR-3164 PO; -HYDROmorphone 2 MG/ML VIAL IV; +IBUP800T19 PO; -LIDOCAINE 1% PF 2 ML VIAL. ID; -LIDOCAINE 1% PF 5 ML VIAL.; -MORPHINE SULFATE 2 MG/ML DISP.SYRIN. IV; -NEOSTIGMINE 10 MG/10 ML VIAL.; +ONDA4TAB10 PO; +ONDA4TAB10 SL; -ONDANSETRON PF 4 MG/2 ML VIAL.; -ONDANSETRON PF 4 MG/2 ML VIAL. IV; +OXYC1TAB15 PO; -PROCHLORPERAZINE 10 MG/2 ML VIAL. IV; -PROPOFOL 20 ML IV; +RANI150C PO; -ROCURONIUM 50 MG/5 ML VIAL.; -SCOPOLAMINE 1.5MG PATCH. TD; +SUCR1TAB35 PO; -ceFAZolin 2GM PREMIX 2 GM/50 ML BAG IV; -fentaNYL PF VIAL 100 MCG/2 ML VIAL; -fentaNYL PF VIAL 100 MCG/2 ML VIAL IV; -oxyCODONE/APAP 5/325 1 TAB TABLET
[2019-11-09] MEDS ORDERED: IV NORMAL SALINE 1000ML BAG 1,000 ML IV ONE (05:00)
--- NOTE | 2019-11-09 05:06 | PHYS DOC ---
Past Medical History Past Medical History: No Pertinent History Additional Past Medical Histor: gallstones Past Surgical History: Tonsillectomy Additional Past Surgical Histo: WISDOM TEETH Smoking Status: Never Smoker Alcohol Use: None Drug Use: None Adult General Chief Complaint Chief Complaint: ABDOMINAL PAIN HPI HPI 29-year-old female presents to the emergency department complaints of abdominal pain, cramping, diarrhea x3 days. Patient states she was at work that started on Friday night. She states she has had 20+ stools. Last menstrual period September 2019, she denies any fever, does complain of some nausea. Nothing makes her symptoms worse, nothing makes her symptoms better. She has used Imodium 1 time a total of 4 mg without relief. Patient denies any headache, chest pain, shortness of breath. She does state at times she is dizzy. She describes the pain as generalized no focal tenderness Review of Systems Review of Systems Constitutional: Denies fever or chills [] Respiratory: Denies cough or shortness of breath [] Cardiovascular: No additional information not addressed in HPI [] GI: + abdominal pain, nausea, diarrhea [] : Denies dysuria or hematuria [] Musculoskeletal: Denies back pain or joint pain [] Integument: Denies rash or skin lesions [] Neurologic: Denies headache, focal weakness or sensory changes [] All other systems were reviewed and found to be within normal limits, except as documented in this note. Current Medications Current Medications Current Medications Medications (Trade) Dose Ordered Sig/Gill Start Time Stop Time Status Last Admin Dose Admin Dicyclomine HCl (Bentyl) 10 mg 1X ONCE 11/09/19 05:15 11/09/19 05:16 DC 11/09/19 05:17 10 MG Ondansetron HCl (Zofran) 4 mg 1X ONCE 11/09/19 05:15 11/09/19 05:16 DC 11/09/19 05:13 4 MG Sodium Chloride 1,000 ml @ 1,000 mls/hr 1X ONCE 11/09/19 05:00 11/09/19 05:59 11/09/19 05:08 1,000 MLS/HR Allergies Allergies Allergies Coded Allergies Type Severity Reaction Last Updated Verified No Known Drug Allergies 07/13/17 No Physical Exam Physical Exam Constitutional: Well developed, well nourished, no acute distress, non-toxic appearance. [] HENT: Normocephalic, atraumatic, bilateral external ears normal, oropharynx moist, no oral exudates, nose normal. [] Eyes: PERRLA, EOMI, conjunctiva normal, no discharge. [] Cardiovascular: Tachycardia Lungs & Thorax: Bilateral breath sounds clear to auscultation [] Abdomen: Bowel sounds normal, soft, generalized tenderness, no rebound, no masses, no pulsatile masses. [] Skin: Warm, dry, no erythema, no rash. [] Back: No tenderness, no CVA tenderness. [] Extremities: No tenderness, no edema. [] Neurologic: Alert and oriented X 3, no focal deficits noted. [] Psychologic: Affect normal, judgement normal, mood normal. [] Current Patient Data Vital Signs Vital Signs Date Time Temp Pulse Resp B/P (MAP) Pulse Ox O2 Delivery O2 Flow Rate FiO2 11/09/19 04:59 98.5 109 20 136/72 (93) 97 Room Air 98.5 Lab Values Laboratory Tests Test 11/09/19 05:05 11/09/19 05:06 White Blood Count 11.2 x10^3/uL (4.0-11.0) H Red Blood Count 5.34 x10^6/uL (3.50-5.40) Hemoglobin 13.9 g/dL (12.0-15.5) Hematocrit 42.3 % (36.0-47.0) Mean Corpuscular Volume 79 fL (79-100) Mean Corpuscular Hemoglobin 26 pg (25-35) Mean Corpuscular Hemoglobin Concent 33 g/dL (31-37) Red Cell Distribution Width 14.8 % (11.5-14.5) H Platelet Count 349 x10^3/uL (140-400) Neutrophils (%) (Auto) 75 % (31-73) H Lymphocytes (%) (Auto) 13 % (24-48) L Monocytes (%) (Auto) 10 % (0-9) H Eosinophils (%) (Auto) 1 % (0-3) Basophils (%) (Auto) 1 % (0-3) Neutrophils # (Auto) 8.4 x10^3/uL (1.8-7.7) H Lymphocytes # (Auto) 1.5 x10^3/uL (1.0-4.8) Monocytes # (Auto) 1.1 x10^3/uL (0.0-1.1) Eosinophils # (Auto) 0.1 x10^3/uL (0.0-0.7) Basophils # (Auto) 0.1 x10^3/uL (0.0-0.2) POC Urine HCG, Qualitative Hcg negative (Negative) Laboratory Tests 11/09/19 05:05 EKG EKG [] Radiology/Procedures Radiology/Procedures [facility] [address] [place] [address] IMAGING REPORT Signed PATIENT: CARLITOS PARKER CACCOUNT: [id number] : 1990 LOCATION: ER AGE: 29 SEX: F EXAM STATUS: REG ER ORD. PHYSICIAN: CAIO WANG MD REASON: Abdominal pain/Diarrhea PROCEDURE: KUB KUB INDICATION: Abdominal pain. COMPARISON: None. FINDINGS: Nonobstructive bowel gas pattern. No free air. No acute osseous abnormality. Right upper quadrant surgical clips. IMPRESSION: Nonobstructive bowel gas pattern. Electronically signed by: Ford Zamarripa MD (11/09/2019 5:28 AM) [id number] DICTATED and SIGNED BY: FORD ZAMARRIPA MD DATE: 11/09/19527 [] Course & Med Decision Making Course & Med Decision Making Pertinent Labs and Imaging studies reviewed. (See chart for details) []29-year-old female presents to the emergency department complaints of abdominal pain, cramping, diarrhea x3 days. Patient states she was at work that started on Friday night. She states she has had 20+ stools. Last menstrual period September 2019, she denies any fever, does complain of some nausea. Nothing makes her symptoms worse, nothing makes her symptoms better. She has used Imodium 1 time a total of 4 mg without relief. Patient denies any headache, chest pain, shortness of breath. She does state at times she is dizzy. She describes the pain as generalized no focal tenderness. Labs/Imaging reviewed KUB without evidence of acute process IVF/Zofran/Bentyl provided in ER WBC mildly elevated, urine - negative Dragon Disclaimer Dragon Disclaimer This electronic medical record was generated, in whole or in part, using a voice recognition dictation system. Departure Departure Impression: Primary Impression: Abdominal pain Additional Impression: Diarrhea Disposition: 01 HOME, SELF-CARE Condition: IMPROVED Referrals: NO PCP (PCP) Patient Instructions: Abdominal Pain (Nonspecific), Diarrhea, [id number], Diet for Diarrhea, Adult Additional Instructions: KUB without evidence of acute process (obstruction/perforation) You were provided IVFs in the ER with anti-nausea and anti-spasmodic medications Tylenol as needed for fever Prescription provided for the above medications Encourage liquid intake as able Diet for diarrhea provided Scripts Dicyclomine Hcl (DICYCLOMINE HCL) 10 Mg Capsule 1 CAP PO PRN Q6HRS, #20 CAP 0 Refills Prov: CAIO WANG MD 11/09/19 Ondansetron Hcl (ZOFRAN) 4 Mg Tablet 1 TAB PO PRN Q6-8HRS for nausea, #12 TAB Prov: CAIO WANG MD 11/09/19 Problem Qualifiers Primary Impression: Abdominal pain Abdominal location: generalized Qualified Codes: R10.84 - Generalized abdominal pain Additional Impression: Diarrhea Diarrhea type: unspecified type Qualified Codes: R19.7 - Diarrhea, unspecified CAIO WANG MD Nov 09, 2019 05:06
[2019-11-09] MEDS ORDERED: DICYCLOMINE 20 MG/2 ML VIAL. IM ONE (05:15)
[2019-11-09] MEDS ORDERED: ONDANSETRON PF 4 MG/2 ML VIAL. IVP ONE (05:15)
[2019-11-09 05:23] LABS: BASO # 0.1 x10^3/uL (0.0-0.2); BASO % 1 % (0-3); EOS # 0.1 x10^3/uL (0.0-0.7); EOS % 1 % (0-3); HEMATOCRIT 42.3 % (36.0-47.0); HEMOGLOBIN 13.9 g/dL (12.0-15.5); LYMPH # 1.5 x10^3/uL (1.0-4.8); LYMPH % 13 % (24-48); MEAN CORPUSCULAR HEMOGLOBIN 26 pg (25-35); MEAN CORPUSCULAR HGB CONC 33 g/dL (31-37); MEAN CORPUSCULAR VOLUME 79 fL (79-100); MONO # 1.1 x10^3/uL (0.0-1.1); MONO % 10 % (0-9); NEUT # 8.4 x10^3/uL (1.8-7.7); NEUT % 75 % (31-73); PLATELET COUNT 349 x10^3/uL (140-400); RED BLOOD COUNT 5.34 x10^6/uL (3.50-5.40); RED CELL DISTRIBUTION WIDTH 14.8 % (11.5-14.5); WHITE BLOOD COUNT 11.2 x10^3/uL (4.0-11.0)
[2019-11-09 05:29] LABS: BILIRUBIN,URINE SMALL (NEG); CLARITY,URINE CLEAR; COLOR,URINE AMBER; NITRITE,URINE NEGATIVE (NEG); PROTEIN,URINE 30 mg/dL (NEG-TRACE); UROBILINOGEN,URINE 0.2 mg/dL (0.2 mg/dL)
--- NOTE | 2019-11-09 05:31 | RAD ---
KUB INDICATION: Abdominal pain. COMPARISON: None. FINDINGS: Nonobstructive bowel gas pattern. No free air. No acute osseous abnormality. Right upper quadrant surgical clips. IMPRESSION: Nonobstructive bowel gas pattern. Electronically signed by: Ariel Zamarripa MD (11/09/2019 5:28 AM) [id number]
[2019-11-09 05:36] LABS: CALCIUM 8.7 mg/dL (8.5-10.1); CREATININE 0.8 mg/dL (0.6-1.0); POTASSIUM 3.5 mmol/L (3.5-5.1)
[2019-11-09 05:37] VITALS: BP 129/78
[2019-11-09 05:41] LABS: ALBUMIN 3.5 g/dL (3.4-5.0); ALBUMIN/GLOBULIN RATIO 0.7 (1.0-1.7); TOTAL BILIRUBIN 0.4 mg/dL (0.2-1.0); TOTAL PROTEIN 8.2 g/dL (6.4-8.2)
[2019-11-09 05:55] LABS: BACTERIA,URINE MODERATE /HPF (0-FEW); SQUAMOUS EPITHELIAL CELL,UR FEW /LPF
[2019-11-09] MEDS ORDERED: ONDA4TAB7 PO (05:59)
[2019-11-09] MEDS ORDERED: DICY10CA3 PO (05:59)
== END 2019-11-09 06:13 | disposition home or self-care (01) ==
LOC: ER 04:46
DX: R10.84 Generalized abdominal pain (principal); R19.7 Diarrhea, unspecified; R42 Dizziness and giddiness
CPT/HCPCS: 36415; 74018; 80053; 81001; 81025; 83690; 85025; 87086; 96361; 96372; 96374; 99284; J0500; J2405; J7030

== ENCOUNTER 2020-07-03 18:34 | Emergency (ER) | payer MEDICAID ==
[~2020-07-03] VITALS: Ht 170.2 cm; Wt 127.0 kg
[~2020-07-03 18:34] MED LIST changes: +DICY10CA3 PO; +ONDA4TAB7 PO
--- NOTE | 2020-07-03 21:44 | PHYS DOC ---
Past Medical History Past Medical History: No Pertinent History Additional Past Medical Histor: gallstones Past Surgical History: Cholecystectomy, Tonsillectomy Additional Past Surgical Histo: WISDOM TEETH, TONSILLECTOMY & CHOLECYSTECTOMY Smoking Status: Never Smoker Alcohol Use: Occasionally Drug Use: None General Adult EDM: Chief Complaint: LOWEREXTREMITY INJURY HPI: HPI: Patient is a 30 year old female who presents with patient states today when she was picking up her child at the [employer] she had to kick open the gate and her foot got stuck between the 2 bar in dropped her leg outward and she felt a pop in the back of her knee the lower hamstring area. She states since then she has had pain in the hamstring and behind the knee area. She states that it is hard to walk. Patient can put pressure on the extremity. Patient rates her pain a pulling sharp 10 out of 10. This pain will radiate all the way up her leg and all the way down to her foot. She states she did not take any medication prior to coming. Patient has a history of cholecystectomy, wisdom teeth, tonsillectomy. Review of Systems: Review of Systems: Constitutional: Denies fever or chills. [] Eyes: Denies change in visual acuity. [] HENT: Denies nasal congestion or sore throat. [] Respiratory: Denies cough or shortness of breath. [] Cardiovascular: Denies chest pain or edema. [] GI: Denies abdominal pain, nausea, vomiting, bloody stools or diarrhea. [] : Denies dysuria. [] Musculoskeletal: Denies back pain. + Posterior left knee joint pain and lower hamstring area. [] Integument: Denies rash. [] Neurologic: Denies headache, focal weakness or sensory changes. [] Endocrine: Denies polyuria or polydipsia. [] Lymphatic: Denies swollen glands. [] Psychiatric: Denies depression or anxiety. [] Heart Score: Risk Factors: Risk Factors: DM, Current or recent (<one month) smoker, HTN, HLP, family history of CAD, obesity. Risk Scores: Score 0 - 3: 2.5% MACE over next 6 weeks - Discharge Home Score 4 - 6: 20.3% MACE over next 6 weeks - Admit for Clinical Observation Score 7 - 10: 72.7% MACE over next 6 weeks - Early Invasive Strategies Allergies: Allergies: Allergies Coded Allergies Type Severity Reaction Last Updated Verified No Known Drug Allergies 07/13/17 No Physical Exam: PE: Constitutional: Well developed, well nourished, no acute distress, non-toxic appearance. [] HENT: Normocephalic, atraumatic, bilateral external ears normal, oropharynx moist, no oral exudates, nose normal. [] Eyes: PERRLA, EOMI, conjunctiva normal, no discharge. [] Neck: Normal range of motion, no tenderness, supple, no stridor. [] Cardiovascular:Heart rate regular rhythm, no murmur [] Lungs & Thorax: Bilateral breath sounds clear to auscultation [] Abdomen: Bowel sounds normal, soft, no tenderness, no masses, no pulsatile masses. [] Skin: Warm, dry, no erythema, no rash. [] Back: No tenderness, no CVA tenderness. [] Extremities: Lower hamstring tenderness, no cyanosis, no clubbing, ROM intact, no edema. [] Neurologic: Alert and oriented X 3, normal motor function, normal sensory function, no focal deficits noted. [] Psychologic: Affect normal, judgement normal, mood normal. [] Current Patient Data: Vital Signs: Vital Signs Date Time Temp Pulse Resp B/P (MAP) Pulse Ox O2 Delivery O2 Flow Rate FiO2 07/03/20 20:38 97.8 86 14 129/78 (95) Room Air 97.8 EKG: EKG: [] Radiology/Procedures: Radiology/Procedures: [] Impression: [facility] [address] [place] [address] IMAGING REPORT Signed PATIENT: CARLITOS PARKER CACCOUNT: [id number] : 1990 LOCATION: ER AGE: 30 SEX: F EXAM STATUS: REG ER ORD. PHYSICIAN: MAYI HSU APRN REASON: pop behind knee and hamstring area PROCEDURE: KNEE LEFT 4V Left hip AP lateral x-rays HISTORY: Left leg pain. FINDINGS: No fracture. No dislocation. Mild spurring of the acetabulum. The soft tissues are unremarkable. IMPRESSION: No acute osseous injury. Left knee x-rays 4 views HISTORY: Left posterior knee pain. FINDINGS: No fracture. No dislocation. No arthritic change. Soft tissues are unremarkable. IMPRESSION: No acute osseous injury. Electronically signed by: Rupali Patterson MD (07/03/2020 10:29 PM) [facility] DICTATED and SIGNED BY: RUPALI PATTERSON MD DATE: 07/03/202228 Course & Med Decision Making: Course & Med Decision Making Pertinent Labs and Imaging studies reviewed. (See chart for details) See HPI. Patient has tenderness right above her posterior knee and the lower hamstring area. There is no bulges felt or seen. There is no bruising seen. There is no tenderness behind the knee. Patient has full range of motion of her knee, hip and ankle. There is no swelling. Patient denies any numbness or tingling, focal weakness or skin color changes. Pedal pulses strong and present. Cap refill less than 2 seconds. She is able to extend the leg fully out at the knee although it is painful and then bend the knee back to a 90 degree angle. Patient is placed in left knee immobilizer and to follow up with orthopedics. [] Polly Disclaimer: Dragally Disclaimer: This electronic medical record was generated, in whole or in part, using a voice recognition dictation system. Departure Departure Impression: Primary Impression: Leg pain, left Disposition: 01 DC HOME SELF CARE/HOMELESS Condition: STABLE Referrals: NO PCP (PCP) Patient Instructions: Hamstring Strain, Knee Pain, [id number] Additional Instructions: Follow up with orthopedics as soon as possible. Use ice and heat to help with pain. Scripts Hydrocodone/Apap 5-325 (NORCO 5-325 TABLET) 1 Each Tablet 1 TAB PO PRN Q6HRS PRN for PAIN, #10 TAB 0 Refills Prov: MAYI HSU OFFICE [employer] CONSULTANT 07/03/20 Ibuprofen (IBUPROFEN) 600 Mg Tablet 600 MG PO PRN Q6HRS PRN for INFLAMMATION, #30 TAB Prov: MAYI HSU [employer] CONSULTANT 07/03/20 MAYI HSU APRN Jul 03, 2020 21:44
[2020-07-03] MEDS ORDERED: HYDROcodone/APAP 5/325MG 1 TAB TABLET PO ONE (21:45)
--- NOTE | 2020-07-03 22:32 | RAD ---
Left hip AP lateral x-rays HISTORY: Left leg pain. FINDINGS: No fracture. No dislocation. Mild spurring of the acetabulum. The soft tissues are unremarkable. IMPRESSION: No acute osseous injury. Left knee x-rays 4 views HISTORY: Left posterior knee pain. FINDINGS: No fracture. No dislocation. No arthritic change. Soft tissues are unremarkable. IMPRESSION: No acute osseous injury. Electronically signed by: Be Patterson MD (07/03/2020 10:29 PM) [facility]
--- NOTE | 2020-07-03 22:32 | RAD ---
Left hip AP lateral x-rays HISTORY: Left leg pain. FINDINGS: No fracture. No dislocation. Mild spurring of the acetabulum. The soft tissues are unremarkable. IMPRESSION: No acute osseous injury. Left knee x-rays 4 views HISTORY: Left posterior knee pain. FINDINGS: No fracture. No dislocation. No arthritic change. Soft tissues are unremarkable. IMPRESSION: No acute osseous injury. Electronically signed by: Be Patterson MD (07/03/2020 10:29 PM) [facility]
[2020-07-03] MEDS ORDERED: IBUP-1007 PO (22:40)
[2020-07-03] MEDS ORDERED: HYDR-3164 PO (22:40)
[2020-07-03 23:14] VITALS: BP 123/90
== END 2020-07-03 23:18 | disposition home or self-care (01) ==
LOC: ER 18:34
DX: M79.605 Pain in left leg (principal); M25.562 Pain in left knee; Z87.442 Personal history of urinary calculi; Z90.49 Acquired absence of other specified parts of digestive tract; Z90.89 Acquired absence of other organs; Z98.890 Other specified postprocedural states
CPT/HCPCS: 29505; 73552; 73564; 99284